=== PATIENT | female | born 1990 ===

== ENCOUNTER 2023-01-26 08:24 | Day surgery (SDC) | payer OTHER | END 2023-01-26 18:05 | disposition home or self-care (01) | LOC: CIR.AMB 08:24 | PROVIDERS: ATTEND Orthopaedic Surgery Hand Surgery | DX: S52.532A Colles' fracture of left radius, initial encounter for closed fracture (principal); E11.9 Type 2 diabetes mellitus without complications; E78.00 Pure hypercholesterolemia, unspecified; Z20.822 Contact with and (suspected) exposure to COVID-19; Z88.6 Allergy status to analgesic agent ==